=== PATIENT | male | born 1965 | race Caucasian/White ===

== ENCOUNTER 2016-12-26 06:02 | Inpatient (IN) | payer OTHER ==
[2016-12-26] VITALS (10 sets, daily range): BP systolic 63–141; BP diastolic 34–101
[~2016-12-26] VITALS: Ht 182.9 cm; Wt 81.6 kg
[2016-12-26 07:34] LABS: PLATELET COUNT 123 x10^3mcL (130-400); RED CELL DISTRIBUTION WIDTH 17.9 % (11.5-14.5)
[2016-12-26 07:55] LABS: T3 TOTAL 0.39 ng/mL
[2016-12-26 07:58] LABS: FREE THYROXINE INDEX 1.5 ug/dL (1.4-4.5); T4(THYROXINE) 4.4 ug/dL (4.7-13.3)
[2016-12-26 08:00] LABS: UA SPECIFIC GRAVITY 1.025 (1.005-1.035); microscopic required? YES; urine erythrocyte 2+ (NEGATIVE)
[2016-12-26 08:02] LABS: ALKALINE PHOSPHATASE 420 U/L (46-116); BILIRUBIN TOTAL 6.22 mg/dL (0.20-1.00); CALCIUM 7.8 mg/dL (8.5-10.1); CARBON DIOXIDE 11.6 mmol/L (21-32); CHLORIDE SERUM 96 mmol/L (98-107); GFR1 37 mL/min; GLUCOSE SERUM 92 mg/dL (74-106); SODIUM SERUM 127 mmol/L (136-145)
[2016-12-26 08:11] LABS: AMPHETAMINE QUAL UR POSITIVE (NEG <=1000)
[2016-12-26 08:21] LABS: ALBUMIN 1.2 g/dL (3.4-5.0); TOTAL PROTEIN, SERUM 5.4 g/dL (6.4-8.2)
[2016-12-26 08:22] LABS: CHOLESTEROL 96 mg/dL (<200)
[2016-12-26 08:23] LABS: POTASSIUM SERUM 6.4 mmol/L (3.5-5.1)
[2016-12-26 08:29] LABS: BAND NEUTROPHIL 0 % (0-10); BASOPHIL 0 % (0-2); MONOCYTE 6 % (0-7); MYELOCYTE 1 % (0-2); SEGMENTED NEUTROPHILS 91 % (37-75); rbc morphology (normal/abnorm) ABNORMAL (NORMAL)
[2016-12-26 08:30] LABS: PLATELET MORPHOLOGY PLATELETS DECREASED
[2016-12-26 09:22] LABS: ALT/SGPT 1118 U/L (16-63); AST/SGOT 7770 U/L (15-37)
[2016-12-26 10:54] LABS: MAGNESIUM 2.1 mg/dL (1.8-2.4); PHOSPHOROUS 5.7 mg/dL (2.5-4.9)
[2016-12-26 11:01] LABS: CHOLESTEROL/HDL RATIO 14.4
[2016-12-26 18:39] LABS: BASOPHIL % 0.4 % (0-2)
[2016-12-26 18:46] LABS: CALCIUM 6.5 mg/dL (8.5-10.1); CARBON DIOXIDE 15.5 mmol/L (21-32); CREATININE SERUM 2.1 mg/dL (0.7-1.3)
[2016-12-26 18:49] LABS: POTASSIUM SERUM 7.1 mmol/L (3.5-5.1)
[2016-12-26 19:05] LABS: PLATELET COUNT 103 x10^3mcL (130-400); RED CELL DISTRIBUTION WIDTH 18.6 % (11.5-14.5)
[2016-12-26 19:35] LABS: rbc morphology (normal/abnorm) ABNORMAL (NORMAL)
== END 2016-12-27 01:00 | disposition expired | DRG 720 ==
LOC: ED 06:02 → IC 09:23
PROVIDERS: Internal Medicine Gastroenterology; Specialist; ADMIT Family Medicine
PROC: 05HM33Z Insertion of Infusion Device into Right Internal Jugular Vein, Percutaneous Approach (ICD-10-PCS; principal; 2016-12-26)
PROC: B5131ZA Fluoroscopy of Right Jugular Veins using Low Osmolar Contrast, Guidance (ICD-10-PCS; 2016-12-26)
PROC: 0BH17EZ Insertion of Endotracheal Airway into Trachea, Via Natural or Artificial Opening (ICD-10-PCS; 2016-12-26)
PROC: 30233N1 Transfusion of Nonautologous Red Blood Cells into Peripheral Vein, Percutaneous Approach (ICD-10-PCS; 2016-12-26)
PROC: 30233K1 Transfusion of Nonautologous Frozen Plasma into Peripheral Vein, Percutaneous Approach (ICD-10-PCS; 2016-12-26)
PROC: 30233L1 Transfusion of Nonautologous Fresh Plasma into Peripheral Vein, Percutaneous Approach (ICD-10-PCS; 2016-12-26)
PROC: 5A09357 Assistance with Respiratory Ventilation, Less than 24 Consecutive Hours, Continuous Positive Airway Pressure (ICD-10-PCS; 2016-12-26)
DX: A41.9 Sepsis, unspecified organism (principal); N17.0 Acute kidney failure with tubular necrosis; J96.00 Acute respiratory failure, unspecified whether with hypoxia or hypercapnia; I46.9 Cardiac arrest, cause unspecified; R65.21 Severe sepsis with septic shock; G93.41 Metabolic encephalopathy; J69.0 Pneumonitis due to inhalation of food and vomit; K92.2 Gastrointestinal hemorrhage, unspecified; D68.9 Coagulation defect, unspecified; T68.XXXA Hypothermia, initial encounter; E16.2 Hypoglycemia, unspecified; E80.6 Other disorders of bilirubin metabolism; I10 Essential (primary) hypertension; Z83.3 Family history of diabetes mellitus; Z82.49 Family history of ischemic heart disease and other diseases of the circulatory system; Z87.891 Personal history of nicotine dependence; K70.31 Alcoholic cirrhosis of liver with ascites; D62 Acute posthemorrhagic anemia; E43 Unspecified severe protein-calorie malnutrition; E87.1 Hypo-osmolality and hyponatremia; E87.5 Hyperkalemia; E87.8 Other disorders of electrolyte and fluid balance, not elsewhere classified; E83.39 Other disorders of phosphorus metabolism; E83.51 Hypocalcemia; Z68.24 Body mass index [BMI] 24.0-24.9, adult
CPT/HCPCS: 36556; 36600; 82962; 83880; 84439; A4628; C9113; G0480; J1170; J1642; J1940; J2060; J2354; J2370; J2543; J2916; J3411; J3430; J3475; J3490; J7030; J7040; J7050; J7620; J8597; P9016; P9047; P9059; Q0092